=== PATIENT | male | born 2000 | race Two or more races ===

== ENCOUNTER 2019-11-01 00:33 | Emergency (ER) | payer OTHER ==
[~2019-11-01] VITALS: Ht 177.8 cm; Wt 72.7 kg
[2019-11-01] MEDS ORDERED: IBUPROFEN 400 MG TABLET PO ONE (01:45)
[2019-11-01] MEDS ORDERED: ACETAMINOPHEN 325 MG TABLET PO ONE (01:45)
[2019-11-01] MEDS ORDERED: PERTUSS(ACELL),DIPH,TET VAC/PF 0.5 ML VIAL IM ONE (02:30)
[2019-11-01] MEDS ORDERED: CeFAZolin 1 GM/DEXTROSE 50 ML IV ONE (03:00)
[2019-11-01 03:56] VITALS: BP 123/58
== END 2019-11-01 03:34 | disposition short-term general hospital (02) ==
LOC: EMS 00:34
DX: S62.324A Displaced fracture of shaft of fourth metacarpal bone, right hand, initial encounter for closed fracture (principal); F17.210 Nicotine dependence, cigarettes, uncomplicated; F12.90 Cannabis use, unspecified, uncomplicated; W22.01XA Walked into wall, initial encounter; Y93.89 Activity, other specified; Y92.89 Other specified places as the place of occurrence of the external cause; Y99.8 Other external cause status
CPT/HCPCS: 73110; 73130; 90471; 90715; 96374; 99285; J0690; 96365